=== PATIENT | female | born 1985 ===

== ENCOUNTER → 2019-01-05 | Outpatient (REF) | payer BC | LOC: M LAB LCGH 14:55 | PROVIDERS: ATTEND Obstetrics & Gynecology | DX: Z12.4 Encounter for screening for malignant neoplasm of cervix (principal) ==

== ENCOUNTER → 2019-03-23 | Outpatient (REF) | payer BC | LOC: M LAB LCGH 11:01 | PROVIDERS: ATTEND Physician Assistant | DX: N93.9 Abnormal uterine and vaginal bleeding, unspecified (principal) ==

== ENCOUNTER → 2019-04-29 | Outpatient (REF) | payer BC | LOC: M LAB LCGH 17:23 | PROVIDERS: ATTEND Obstetrics & Gynecology | DX: N93.9 Abnormal uterine and vaginal bleeding, unspecified (principal) ==